=== PATIENT | female | born 1990 | race American Indian/Alaskan Native ===

== ENCOUNTER 2017-04-05 01:43 | Inpatient (IN) | payer OTHER ==
[~2017-04-05] VITALS: Ht 157.5 cm; Wt 3.2 kg
== END 2017-04-08 11:59 | disposition home or self-care (01) | DRG 766 ==
LOC: OBS/DEL 01:43 → OB/GYN 08:12 → LDR 08:12 → O/R 14:37 → OB/GYN 16:10
PROVIDERS: Obstetrics & Gynecology
PROC: 4A1HXCZ Monitoring of Products of Conception, Cardiac Rate, External Approach (ICD-10-PCS; 2017-04-05)
PROC: 4A033R1 Measurement of Arterial Saturation, Peripheral, Percutaneous Approach (ICD-10-PCS; 2017-04-05)
PROC: 10D00Z1 Extraction of Products of Conception, Low, Open Approach (ICD-10-PCS; principal; 2017-04-05 15:00)
DX: O76 Abnormality in fetal heart rate and rhythm complicating labor and delivery (principal); O64.0XX0 Obstructed labor due to incomplete rotation of fetal head, not applicable or unspecified; Z3A.39 39 weeks gestation of pregnancy; Z37.0 Single live birth